=== PATIENT | female | born 1995 | race Two or more races ===

== ENCOUNTER 2021-12-11 18:30 | Emergency (ER) | payer BC ==
[~2021-12-11] VITALS: Ht 160 cm; Wt 86.6 kg
--- NOTE | 2021-12-11 18:40 | NUR ---
BIBS C/O epigastric pain since last night, got worst since this morning. +nausea. AMBULATORY, PLACED ON BED, AAOX4, BREATHING EVEN AND UNLABORED.
[2021-12-11] MEDS ORDERED: ONDANSETRON HCL/PF 4 MG/2 ML VIAL ONE (18:55)
[2021-12-11] MEDS ORDERED: IV NS 0.9% 1,000 ML BAG IV ONE (19:00)
[2021-12-11] MEDS ORDERED: ONDANSETRON HCL/PF 4 MG/2 ML VIAL IVP ONE (19:00)
--- NOTE | 2021-12-11 19:08 | NUR ---
BLOOD DRAWN AND SENT TO LAB
--- NOTE | 2021-12-11 19:08 | NUR ---
U/S TECH AT BED SIDE
[2021-12-11 19:47] LABS: BILIRUBIN,URINE NEGATIVE (NEGATIVE); COLOR,URINE YELLOW (YELLOW); LEUKOCYTE ESTERASE ,URINE NEGATIVE (NEGATIVE); NITRITE, URINE NEGATIVE (NEGATIVE); PROTEIN,URINE NEGATIVE (NEGATIVE); UGLUCOSE NEGATIVE (NEGATIVE); UROBILINOGEN,URINE 0.2 EU/dL (0.2)
[2021-12-11 19:48] LABS: BASOPHILS % (AUTO) 0.5 % (0.0-2.0); HEMATOCRIT 41 % (33-45); HEMOGLOBIN 13.7 g/dL (11.5-14.8); LYMPHOCYTES # (AUTO) 2.2 K/uL (0.8-4.8); LYMPHOCYTES % (AUTO) 26.3 % (20.0-44.0); MEAN CORPUSCULAR HGB CONC 33 g/dl (31.0-36.0); MEAN CORPUSCULAR VOLUME 92 fL (82-100); MONOCYTES # (AUTO) 0.5 K/uL (0.1-1.30); MONOCYTES % (AUTO) 6.1 % (2.0-12.0); NEUTROPHILS # (AUTO) 5.5 K/uL (1.8-8.9); NEUTROPHILS % (AUTO) 65.1 % (43.0-81.0); PLATELET COUNT (AUTO) 292 K/uL (150-450); RED BLOOD CELL COUNT(AUTO) 4.49 MIL/uL (4.0-5.2); WHITE BLOOD COUNT (AUTO) 8.4 K/uL (4.3-11.0)
[2021-12-11 20:11] LABS: CREATININE 0.9 mg/dL (0.6-1.3); POTASSIUM 3.3 mmol/L (3.5-5.1)
[2021-12-11 20:14] LABS: ALBUMIN 3.8 g/dL (3.4-5.0); BILIRUBIN,DIRECT 0.1 mg/dL (0.0-0.2); BILIRUBIN,TOTAL 0.4 mg/dL (0.2-1.0); TOTAL PROTEIN, SERUM 7.3 g/dL (6.4-8.2)
[2021-12-11] MEDS ORDERED: KETOROLAC TROMETHAMINE INJ 30 MG/ML VIAL IV ONE (20:30)
[2021-12-11] MEDS ORDERED: HYDROCODONE/APAP 10/325MG TABLET ONE (20:36)
[2021-12-11] MEDS ORDERED: IBUP-1955 PO (20:36)
[2021-12-11] MEDS ORDERED: KETOROLAC TROMETHAMINE INJ 30 MG/ML VIAL ONE (20:36)
[2021-12-11] MEDS ORDERED: ONDA4TAB5 PO (20:36)
[2021-12-11] MEDS ORDERED: TRAM50TA2 PO (20:36)
[2021-12-11] MEDS ORDERED: HYDROCODONE/APAP 5/325MG TABLET ONE (20:43)
--- NOTE | 2021-12-11 20:52 | NUR ---
IV removed. Catheter intact and site benign. Pressure and 4x4 applied to site. No bleeding noted.Patient discharged to home in stable condition. Written and verbal after care instructions given. Patient verbalizes understanding of instruction.
[2021-12-11 20:59] VITALS: BP 120/85
[2021-12-11] MEDS ORDERED: HYDROCODONE/APAP 5/325MG TABLET PO ONE (21:00)
== END 2021-12-11 20:52 | disposition home or self-care (01) ==
LOC: ER 18:32
DX: K80.50 Calculus of bile duct without cholangitis or cholecystitis without obstruction (principal); R10.13 Epigastric pain; R10.11 Right upper quadrant pain; Z79.899 Other long term (current) drug therapy
CPT/HCPCS: 99284; 96374; 76700; 96361; 96375; 85025; 80048; 83690; 80076; 84703; 81003; 36415; J1885; J2405; J7030

== ENCOUNTER 2022-07-12 08:20 | Emergency (ER) | payer BC ==
[~2022-07-12] VITALS: Ht 160 cm; Wt 86.6 kg
[~2022-07-12 08:20] MED LIST: IBUP-1955 PO; ONDA4TAB5 PO; TRAM50TA2 PO
--- NOTE | 2022-07-12 08:20 | NUR ---
BIB FRIEND C/O R SHARP LOWER BACK PAIN SINCE 2099 YESTERDAY, DENIES ANY TRAUMA, PAIN 01/01. VITALS ARE WITHIN NORMAL LIMITS. PT ABLE TO AMBULATE WITH STEADY GAIT. AWAITING MD ORDERS.
--- NOTE | 2022-07-12 08:44 | NUR ---
urine sample collected
--- NOTE | 2022-07-12 08:44 | NUR ---
pt seen by . orders given will continue to monitor
[2022-07-12] MEDS ORDERED: KETOROLAC TROMETHAMINE 15 MG/ML VIAL ONE (08:58)
[2022-07-12] MEDS ORDERED: ACETAMINOPHEN 325 MG TABLET ONE (08:59)
[2022-07-12] MEDS ORDERED: KETOROLAC TROMETHAMINE INJ 30 MG/ML VIAL IV ONE (09:00)
[2022-07-12] MEDS ORDERED: IV NS 0.9% 1,000 ML IV ONE (09:00)
[2022-07-12] MEDS ORDERED: ACETAMINOPHEN 325 MG TABLET PO ONE (09:00)
--- NOTE | 2022-07-12 09:17 | NUR ---
IV started RAC 20g blood sent to lab fluids started
[2022-07-12 09:43] LABS: BILIRUBIN,URINE NEGATIVE (NEGATIVE); COLOR,URINE YELLOW (YELLOW); LEUKOCYTE ESTERASE ,URINE NEGATIVE (NEGATIVE); NITRITE, URINE NEGATIVE (NEGATIVE); PROTEIN,URINE NEGATIVE (NEGATIVE); UGLUCOSE NEGATIVE (NEGATIVE); UROBILINOGEN,URINE 0.2 EU/dL (0.2)
[2022-07-12 09:46] LABS: CREATININE 0.8 mg/dL (0.6-1.3); POTASSIUM 4.1 mmol/L (3.5-5.1)
[2022-07-12 09:53] LABS: BASOPHILS % (AUTO) 0.3 % (0.0-2.0); EOSINOPHILS % (AUTO) 2.4 % (0.0-6.0); HEMATOCRIT 44 % (33-45); HEMOGLOBIN 14.4 g/dL (11.5-14.8); LYMPHOCYTES # (AUTO) 1.7 K/uL (0.8-4.8); LYMPHOCYTES % (AUTO) 25.9 % (20.0-44.0); MEAN CORPUSCULAR HGB CONC 33 g/dl (31.0-36.0); MEAN CORPUSCULAR VOLUME 91 fL (82-100); MONOCYTES # (AUTO) 0.4 K/uL (0.1-1.30); MONOCYTES % (AUTO) 5.5 % (2.0-12.0); NEUTROPHILS # (AUTO) 4.3 K/uL (1.8-8.9); NEUTROPHILS % (AUTO) 65.9 % (43.0-81.0); PLATELET COUNT (AUTO) 305 K/uL (150-450); RED BLOOD CELL COUNT(AUTO) 4.87 MIL/uL (4.0-5.2); WHITE BLOOD COUNT (AUTO) 6.5 K/uL (4.3-11.0)
[2022-07-12 10:04] LABS: WBC,URINE 0-2 /HPF (0-3)
[2022-07-12 10:05] LABS: BACTERIA,URINE Few /HPF (None Seen); SQUAMOUS EPITHELIAL CELL,UR Few /HPF (None Seen)
--- NOTE | 2022-07-12 10:13 | NUR ---
Urine returned negative. Toradol given IV
[2022-07-12] MEDS ORDERED: HYDR-4209 PO (10:47)
[2022-07-12] MEDS ORDERED: IBUP-1955 PO (10:47)
[2022-07-12] MEDS ORDERED: CYCL5TAB PO (10:47)
[2022-07-12] MEDS ORDERED: MORPHINE SULFATE INJ 2 MG/ML DISP.SYRIN IV ONE (11:00)
[2022-07-12] MEDS ORDERED: LORAZEPAM INJ 2 MG/ML VIAL IV ONE (11:00)
[2022-07-12] MEDS ORDERED: ONDANSETRON HCL/PF 4 MG/2 ML VIAL IV ONE (11:00)
[2022-07-12] MEDS ORDERED: MORPHINE SULFATE INJ 4 MG/ML DISP.SYRIN ONE (11:01)
[2022-07-12] MEDS ORDERED: LORAZEPAM INJ 2 MG/ML VIAL ONE (11:01)
[2022-07-12 11:19] VITALS: BP 127/82
== END 2022-07-12 11:19 | disposition home or self-care (01) ==
LOC: ER 08:36
DX: M54.6 Pain in thoracic spine (principal); Z79.899 Other long term (current) drug therapy
CPT/HCPCS: 99285; 96374; 96375; 71045; 96361; 93005; 85025; 80048; 84703; 81001; 36415; J2060; J2270; J7030; J1885

== ENCOUNTER 2023-10-07 17:19 | Emergency (ER) | payer BC ==
[~2023-10-07] VITALS: Ht 160 cm; Wt 86.2 kg
[~2023-10-07 17:19] MED LIST changes: +CYCL5TAB PO; +HYDR-4209 PO; -ONDA4TAB5 PO; -TRAM50TA2 PO
[2023-10-07] MEDS ORDERED: KETOROLAC TROMETHAMINE INJ 60 MG/2 ML VIAL IM ONE (18:06)
[2023-10-07] MEDS: KETOROLAC TROMETHAMINE INJ 60 MG/2 ML VIAL IM ONE (18:16)
[2023-10-07] MEDS ORDERED: IBUP-1953 PO (18:49)
[2023-10-07 19:01] VITALS: BP 105/69; TEMP 98.4; O2SAT 100
== END 2023-10-07 19:20 | disposition home or self-care (01) ==
LOC: ER 17:19
DX: M53.3 Sacrococcygeal disorders, not elsewhere classified (principal); Z79.1 Long term (current) use of non-steroidal anti-inflammatories (NSAID); Z79.891 Long term (current) use of opiate analgesic
CPT/HCPCS: 99283; 96372; 72220; J1885

== ENCOUNTER 2024-11-25 15:20 | Emergency (ER) | payer BC ==
[~2024-11-25] VITALS: Ht 160 cm; Wt 93.9 kg
[~2024-11-25 15:20] MED LIST changes: +IBUP-1953 PO
[2024-11-25 16:58] LABS: PLATELET COUNT (AUTO) 291 K/uL (150-450); RED BLOOD CELL COUNT(AUTO) 4.43 MIL/uL (4.0-5.2); RED CELL DISTRIBUTION WIDTH 13.3 % (11.5-15.0); WHITE BLOOD COUNT (AUTO) 9.6 K/uL (4.3-11.0)
[2024-11-25 17:07] LABS: CALCIUM, SERUM 9.1 mg/dL (8.5-10.1); CREATININE 0.7 mg/dL (0.6-1.3); SODIUM SERUM 137.0 mmol/L (136-145); UREA NITROGEN, BLOOD 17.0 mg/dL (7-18)
[2024-11-25 17:43] LABS: APPEARANCE,URINE CLEAR (CLEAR); BLOOD, URINE Trace-intact Ery/uL (NEGATIVE); LEUKOCYTE ESTERASE ,URINE Small (NEGATIVE); UGLUCOSE Negative (NEGATIVE)
[2024-11-25 17:50] LABS: NITRITE, URINE NEGATIVE (NEGATIVE)
[2024-11-25 17:53] LABS: PREGNANCY TEST URINE QUAL NEGATIVE (NEGATIVE)
[2024-11-25 17:56] LABS: ADD URINE CULTURE YES; SQUAMOUS EPITHELIAL CELL,UR Moderate /HPF (None Seen)
[2024-11-25 18:53] VITALS: BP 128/74; TEMP 98.4; O2SAT 99
== END 2024-11-25 18:53 | disposition home or self-care (01) ==
LOC: ER 15:23
DX: R55 Syncope and collapse (principal); R07.9 Chest pain, unspecified; R20.0 Anesthesia of skin; Z79.1 Long term (current) use of non-steroidal anti-inflammatories (NSAID)
CPT/HCPCS: 36415; 71045-TC; 80048-TC; 81001; 84703-TC; 85025-TC; 87086-TC